=== PATIENT | male | born 2005 | race Caucasian/White ===

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

== ENCOUNTER 2024-04-21 16:55 | Emergency (ER) | payer BC ==
[2024-04-21 17:03] VITALS: BP 125/72; PULSE 62; RESP 18; TEMP 98.7; BMI 19.2
[2024-04-21] MEDS ORDERED: DIPHTH,PERTUSS(ACELL),TET 0.5 ML DISP.SYRIN IM ONE (18:10)
[2024-04-21] MEDS: DIPHTH,PERTUSS(ACELL),TET 0.5 ML DISP.SYRIN IM ONE (18:11)
== END 2024-04-21 18:19 | disposition home or self-care (01) ==
LOC: JERFT 16:55
PROC: 0XQDXZZ Repair Right Lower Arm, External Approach (ICD-10-PCS; principal; 2024-04-21)
PROC: 3E0234Z Introduction of Serum, Toxoid and Vaccine into Muscle, Percutaneous Approach (ICD-10-PCS; 2024-04-21)
DX: S51.811A Laceration without foreign body of right forearm, initial encounter (principal); W22.8XXA Striking against or struck by other objects, initial encounter; Z23 Encounter for immunization
CPT/HCPCS: 90715; 99282-25